=== PATIENT | female | born 1985 | race Caucasian/White ===

== ENCOUNTER 2020-12-26 00:10 | Emergency (ER) | payer MEDICAID ==
[2020-12-26] MEDS ORDERED: ALLEGRA 60MG TA60 MG PO (05:06)
[2020-12-26] MEDS ORDERED: FLONASEALLERGY NS (05:06)
[2020-12-26] MEDS ORDERED: PEPCID 20MG TAB20 MG PO (05:06)
[2020-12-26] MEDS ORDERED: MACROBID 1100 MG/CAP PO (05:47)
== END 2020-12-26 01:04 | disposition left against medical advice (07) ==
LOC: COL.ER 00:10
DX: R52 Pain, unspecified (principal)

== ENCOUNTER 2020-12-26 04:20 | Emergency (ER) | payer MEDICAID ==
[~2020-12-26] VITALS: Ht 167.6 cm; Wt 61.4 kg
[2020-12-26] MEDS ORDERED: ALLEGRA 60MG TA60 MG PO (05:06)
[2020-12-26] MEDS ORDERED: FLONASEALLERGY NS (05:06)
[2020-12-26] MEDS ORDERED: PEPCID 20MG TAB20 MG PO (05:06)
[2020-12-26 05:18] LABS: COLLECTION METHOD CLEAN CATCH
[2020-12-26 05:32] LABS: MUCOUS Present /lpf; PH 5 (5-8); SQUAMOUS EPITHELIAL 0-2 /hpf; URINE APPEARANCE Clear; URINE BACTERIA None Seen /hpf; URINE BILIRUBIN Negative (NEGATIVE); URINE BLOOD 2+ (NEGATIVE); URINE COLOR Yellow; URINE GLUCOSE Negative (NEGATIVE); URINE KETONE 2+ (NEGATIVE); URINE LEUKOCYTE ESTERASE Negative (NEGATIVE); URINE NITRATE Negative (NEGATIVE); URINE PROTEIN(semi-quant) 2+ (NEGATIVE); URINE RBC 20-50 /hpf; URINE WBC 0-2 /hpf
[2020-12-26] MEDS ORDERED: MACROBID 1100 MG/CAP PO (05:47)
[2020-12-26 05:53] VITALS: BP 122/81; PULSE 80; TEMP 98.3
== END 2020-12-26 05:53 | disposition home or self-care (01) ==
LOC: COL.ER 04:20
PROVIDERS: Emergency Medicine
DX: J30.9 Allergic rhinitis, unspecified (principal); R31.9 Hematuria, unspecified
CPT/HCPCS: J8540

== ENCOUNTER 2021-03-24 14:57 | Emergency (ER) | payer MEDICAID ==
[~2021-03-24] VITALS: Ht 165.1 cm; Wt 62.7 kg
[~2021-03-24 14:57] MED LIST: ALLEGRA 60MG TA60 MG PO; FLONASEALLERGY NS; MACROBID 1100 MG/CAP PO; PEPCID 20MG TAB20 MG PO
[2021-03-24 15:20] VITALS: TEMP 97.7
[2021-03-24] MEDS ORDERED: PREDNISONE20 MG PO (16:57)
[2021-03-24] MEDS ORDERED: PROAIR HFA0.09 MG/AC IH (16:57)
[2021-03-24] MEDS ORDERED: SINGULAIR 110 MG/TAB PO (16:57)
[2021-03-24 17:12] VITALS: BP 111/66; PULSE 90
== END 2021-03-24 17:12 | disposition home or self-care (01) ==
LOC: COL.ER 14:57
DX: J98.01 Acute bronchospasm (principal); Z87.891 Personal history of nicotine dependence; Z20.822 Contact with and (suspected) exposure to COVID-19

== ENCOUNTER 2022-07-04 15:01 | Emergency (ER) | payer MEDICAID ==
[~2022-07-04] VITALS: Ht 162.6 cm; Wt 65.9 kg
[~2022-07-04 15:01] MED LIST changes: +ALBUTEROL1.25 MG/3 IH; +ALLEGRA 180MG180 MG PO; +BENADRYL25 M2 PO; +EPIPEN 2-PAK1 MG/ML IM; +FLONASE NASAL S16 GM NS; +IMITREX50 MG PO; +LEVAQUIN 750MG750 M1 PO; +PREDNISONE20 MG PO; +PROAIR HFA0.09 MG/AC IH; +RT ADVAIR 128 DISKUS IH; +SINGULAIR 110 MG/TAB PO
[2022-07-04 15:13] VITALS: BP 119/78; TEMP 98
[2022-07-04 16:05] LABS: BASO # 0.1 K/mm3 (0.0-0.2); BASO % 0.7 % (0.0-2.0); EOS # 1.2 K/mm3 (0.0-0.7); EOS % 14.2 % (0.0-4.0); GRAN # 4.8 K/mm3 (1.4-6.5); GRAN % 58.4 % (42.2-75.2); HEMATOCRIT 39.6 % (37.0-47.0); HEMOGLOBIN 12.9 g/dl (12.5-16.0); LYMPH # 1.6 K/mm3 (1.2-3.4); LYMPH % 19.2 % (20.0-51.0); MEAN CELL VOLUME 90 fl (80.0-100.0); MEAN CORPUSCULAR HEMOGLOBIN 29 pg (27-31); MEAN CORPUSCULAR HGB CONC 33 g/dl (33.0-37.0); MEAN PLATELET VOLUME 9.9 fl (7.4-10.4); MONO # 0.6 K/mm3 (0.1-0.6); MONO % 7.4 % (1.7-9.3); PLATELET COUNT 187 K/mm3 (130-400); RED BLOOD COUNT 4.39 M/mm3 (4.10-5.30); REDCELL DISTRIBUTION WIDTH-CV 13.6 % (11.5-14.5)
[2022-07-04 18:10] VITALS: PULSE 107
== END 2022-07-04 18:11 | disposition home or self-care (01) ==
LOC: COL.ER 15:01
PROVIDERS: Physician Assistant
DX: N92.0 Excessive and frequent menstruation with regular cycle (principal); L50.9 Urticaria, unspecified; Z28.310 Unvaccinated for COVID-19
CPT/HCPCS: J7030